=== PATIENT | male | born 1955 | race African-American/Black ===

== ENCOUNTER → 2016-10-20 | Outpatient (CLI) | payer MEDICAID | END | disposition home or self-care (01) | LOC: CFH 14:09 | PROVIDERS: ATTEND Internal Medicine Cardiovascular Disease | DX: I42.9 Cardiomyopathy, unspecified (principal); I08.3 Combined rheumatic disorders of mitral, aortic and tricuspid valves; I10 Essential (primary) hypertension; E78.5 Hyperlipidemia, unspecified; E11.8 Type 2 diabetes mellitus with unspecified complications; I25.2 Old myocardial infarction | CPT/HCPCS: 93306 ==

== ENCOUNTER → 2017-10-25 | Outpatient (CLI) | payer MEDICAID | END | disposition home or self-care (01) | LOC: CVU 12:55 | PROVIDERS: ATTEND Internal Medicine Cardiovascular Disease | DX: I42.9 Cardiomyopathy, unspecified (principal); I10 Essential (primary) hypertension; I25.2 Old myocardial infarction | CPT/HCPCS: 93306 ==

== ENCOUNTER → 2018-10-30 | Outpatient (CLI) | payer MEDICAID | END | disposition home or self-care (01) | LOC: CFH 06:45 | PROVIDERS: ATTEND Internal Medicine Cardiovascular Disease | DX: I35.8 Other nonrheumatic aortic valve disorders (principal); I11.9 Hypertensive heart disease without heart failure; I25.89 Other forms of chronic ischemic heart disease; I42.9 Cardiomyopathy, unspecified; E78.5 Hyperlipidemia, unspecified; I25.2 Old myocardial infarction | CPT/HCPCS: 78452; 93017; 93306; A9502 ==

== ENCOUNTER 2018-11-21 08:08 | Observation (INO) | payer MEDICAID ==
[~2018-11-21] VITALS: Ht 175.3 cm; Wt 98.6 kg
[2018-11-21] MEDS ORDERED: PRAV40TA2 PO (08:44)
[2018-11-21] MEDS ORDERED: PIOG30TA4 PO (08:44)
[2018-11-21] MEDS ORDERED: ASPI-496 PO (08:44)
[2018-11-21] MEDS ORDERED: CARV25TA12 PO (08:44)
[2018-11-21] MEDS ORDERED: GABA300C10 PO (08:44)
[2018-11-21] MEDS ORDERED: DULA0.75 SC (08:44)
[2018-11-21] MEDS ORDERED: GLIM4TAB2 PO (08:44)
[2018-11-21] MEDS ORDERED: LOSA25TA25 PO (08:44)
[2018-11-21] MEDS ORDERED: HYDROCHLOROTH12.5 MG PO (08:44)
[2018-11-21] MEDS ORDERED: ASPIRIN 325 MG TABLET EC PO ONE (09:00)
[2018-11-21] MEDS ORDERED: ASPIRIN 325 MG TABLET EC ONE ×2 (09:22→12:28)
[2018-11-21] MEDS ORDERED: MIDAZOLAM 1 MG/ML, 5ML ONE ×2 (09:22→11:28)
[2018-11-21] MEDS ORDERED: FENTANYL PF 100 MCG/2ML ONE ×2 (09:22→11:27)
[2018-11-21] MEDS ORDERED: LIDOCAINE 1%, 20ML ONE (09:22)
[2018-11-21] MEDS ORDERED: NITROGLYCERIN 5 MG/ML, 10ML ONE (09:23)
[2018-11-21 09:25] LABS: BASOPHILS # (AUTO) 0.05 x10^3/uL (0-0.1); BASOPHILS % (AUTO) 1 % (0-1); EOSINOPHILS % (AUTO) 3 % (1-7); LYMPHOCYTES # (AUTO) 1.12 x10^3/uL (1-3.4); LYMPHOCYTES % (AUTO) 32 % (22-44); MD NO; MEAN CORPUSCULAR HEMOGLOBIN 28.4 pg (27.5-34.5); MEAN CORPUSCULAR VOLUME 88.9 fL (81-97); MONOCYTES # (AUTO) 0.38 x10^3/uL (0.2-0.8); MONOCYTES % (AUTO) 11 % (2-9); NEUTROPHILS # (AUTO) 1.84 x10^3/uL (1.8-6.8); NEUTROPHILS % (AUTO) 53 % (42-75); PLATELET COUNT 161 x10^3/uL (130-400); RED BLOOD COUNT 4.76 x10^6/uL (4.38-5.82); RED CELL DISTRIBUTION WIDTH 15.1 % (9.4-14.8)
[2018-11-21 09:26] VITALS: BP 139/90
[2018-11-21] MEDS ORDERED: PLEASE ENTER HEIGHT AND WEIGHT MC SCH (09:30)
[2018-11-21 09:43] LABS: ANION GAP 6 mmol/L (5-15); CALCIUM 8.6 mg/dL (8.5-10.1); CHLORIDE 113 mmol/L (98-107); CREATININE 1.34 mg/dL (0.7-1.3)
[2018-11-21] MEDS ORDERED: BIVALIRUDIN 250 MG ONE ×2 (11:28→12:14)
[2018-11-21] MEDS ORDERED: TICAGRELOR 90 MG TABLET ONE (11:28)
[2018-11-21] MEDS ORDERED: LIDOCAINE-MPF 1%, 5ML ONE (11:28)
[2018-11-21] MEDS ORDERED: BIVALIRUDIN 250 MG in SODIUM CHLORIDE 0.9% 50 ML IV SCH (12:25)
[2018-11-21] MEDS ORDERED: SODIUM CHLORIDE 0.9% 1,000 ML IV SCH (12:25)
[2018-11-21 12:55] VITALS: BP 133/82
[2018-11-21] MEDS: SODIUM CHLORIDE 0.9% 1,000 ML IV SCH ×2 (13:13→13:14)
[2018-11-21] MEDS: ASPIRIN 81 MG TABLET EC PO SCH (13:13)
[2018-11-21 20:57] VITALS: BP 121/74
[2018-11-21] MEDS: CARVEDILOL 25 MG TABLET PO SCH (20:58)
[2018-11-21] MEDS ORDERED: PRAVASTATIN 40 MG TABLET PO SCH (21:00)
[2018-11-21] MEDS ORDERED: TICAGRELOR 90 MG TABLET PO SCH (21:00)
[2018-11-22 00:36] VITALS: BP 115/76
[2018-11-22 05:39] LABS: ANION GAP 6 mmol/L (5-15); CALCIUM 8.1 mg/dL (8.5-10.1); CHLORIDE 110 mmol/L (98-107)
[2018-11-22 05:40] LABS: CREATININE 1.53 mg/dL (0.7-1.3)
[2018-11-22] MEDS ORDERED: ONDANSETRON 2MG/ML, 2ML IVPush ONE (08:30)
[2018-11-22] MEDS ORDERED: GABAPENTIN 300 MG CAPSULE PO SCH (09:00)
[2018-11-22] MEDS ORDERED: LOSARTAN 50MG TABLET PO SCH (09:00)
[2018-11-22] MEDS ORDERED: HYDROCHLOROTHIAZIDE 12.5 MG CAPSULE PO SCH (09:00)
[2018-11-22] MEDS ORDERED: GLIMEPIRIDE 4 MG TABLET PO SCH (09:00)
[2018-11-22 09:03] VITALS: BP 133/81
[2018-11-22] MEDS ORDERED: PRASUGREL 10 MG TABLET PO ONE (09:30)
[2018-11-22] MEDS ORDERED: PRASUGREL 10 MG TABLET ONE (09:41)
[2018-11-22] MEDS: ASPIRIN 81 MG TABLET EC PO SCH (09:45)
[2018-11-22] MEDS: CARVEDILOL 25 MG TABLET PO SCH (09:46)
[2018-11-22] MEDS ORDERED: PRAS10TA4 PO (13:38)
[2018-11-23] MEDS ORDERED: PRASUGREL 10 MG TABLET PO SCH (09:00)
== END 2018-11-22 14:55 | disposition home or self-care (01) ==
LOC: CACL 08:08 → 5SO 12:25 → CACL 12:43 → 5SO 16:46 → DCLOUNGE 11-22 14:47
PROVIDERS: ADMIT Internal Medicine Cardiovascular Disease; ATTEND Internal Medicine Cardiovascular Disease
DX: I25.110 Atherosclerotic heart disease of native coronary artery with unstable angina pectoris (principal); I12.9 Hypertensive chronic kidney disease with stage 1 through stage 4 chronic kidney disease, or unspecified chronic kidney disease; E11.22 Type 2 diabetes mellitus with diabetic chronic kidney disease; N18.9 Chronic kidney disease, unspecified; E78.5 Hyperlipidemia, unspecified; I42.9 Cardiomyopathy, unspecified; E66.9 Obesity, unspecified; T78.3XXA Angioneurotic edema, initial encounter; Z88.8 Allergy status to other drugs, medicaments and biological substances
CPT/HCPCS: 36415; 80048; 85025; 93005; 93458; 96374; 99156; C1725; C1760; C1769; C1874; C1887; C1894; C9600; G0378; J0583; J2250; J2405; J3010; J3490; Q9967; 96372

== ENCOUNTER → 2019-10-25 | Outpatient (CLI) | payer MEDICAID ==
[~2019-10-25] MED LIST: ASPI-496 PO; CARV25TA12 PO; DULA0.75 SC; GABA300C10 PO; GLIM4TAB8 PO; HYDROCHLOROTH12.5 MG PO; LOSA25TA25 PO; PIOG30TA68 PO; PRAS10TA4 PO; PRAV40TA2 PO
== END | disposition home or self-care (01) ==
LOC: CFH 08:41
PROVIDERS: ATTEND Internal Medicine Cardiovascular Disease
DX: I35.0 Nonrheumatic aortic (valve) stenosis (principal); I42.9 Cardiomyopathy, unspecified
CPT/HCPCS: 93306; 93356

== ENCOUNTER 2020-08-21 17:12 | Inpatient (IN) | payer MEDICAID ==
[~2020-08-21] VITALS: Ht 167.6 cm; Wt 81.9 kg
[2020-08-21] MEDS ORDERED: chlorPROMAZINE 25 MG/ML, 1ML IM ONE (18:11)
--- NOTE | 2020-08-21 18:18 | NUR ---
PT STATES HE HAS BEEN FEBRILE WITH CHILLS AND NAUSEA AND BODYACHES. STATES HE HAS NOT EVER FELT THIS BAD IN HIS LIFE
[2020-08-21] MEDS ORDERED: ONDANSETRON 2MG/ML, 2ML IVPush ONE (18:30)
[2020-08-21] MEDS ORDERED: ACETAMINOPHEN 500 MG TABLET PO ONE (18:30)
[2020-08-21] MEDS ORDERED: HYDROmorphone 2 MG/ML, 1ML IVPush PRN (18:30)
[2020-08-21 18:59] LABS: BASOPHILS % (AUTO) 0 % (0-1); EOSINOPHILS % (AUTO) 0 % (1-7); LYMPHOCYTES % (AUTO) 14 % (22-44); MEAN CORPUSCULAR HEMOGLOBIN 28.9 pg (27.5-34.5); MEAN PLATELET VOLUME 8.1 fL (7.4-10.4); MONOCYTES % (AUTO) 11 % (2-9); NEUTROPHILS % (AUTO) 74 % (42-75); PLATELET COUNT 153 x10^3/uL (130-400); RED BLOOD COUNT 4.43 x10^6/uL (4.38-5.82); RED CELL DISTRIBUTION WIDTH 13.8 % (9.4-14.8)
[2020-08-21 19:00] LABS: MD NO
[2020-08-21 19:04] LABS: ALANINE AMINOTRANSFERASE 30 U/L (12-78); ALBUMIN 3.1 g/dL (3.4-5.0); ANION GAP 6 mmol/L (5-15); CALCIUM 8.2 mg/dL (8.5-10.1); CHLORIDE 101 mmol/L (98-107)
[2020-08-21 19:07] LABS: ALKALINE PHOSPHATASE 64 U/L (45-117); BILIRUBIN,TOTAL 0.8 mg/dL (0.2-1.0); TOTAL PROTEIN 7.2 g/dL (6.4-8.2)
[2020-08-21] MEDS ORDERED: BACLOFEN 10 MG TABLET PO ONE (19:08)
--- NOTE | 2020-08-21 19:11 | NUR ---
REPORT TO BERTRAM FERNÁNDEZ
[2020-08-21] MEDS ORDERED: ONDANSETRON 2MG/ML, 2ML ONE (19:15)
[2020-08-21] MEDS ORDERED: ACETAMINOPHEN 500 MG TABLET ONE (19:15)
[2020-08-21] MEDS ORDERED: HYDROmorphone 1 MG/ML, 1ML INJ ONE (19:15)
[2020-08-21] MEDS ORDERED: MAALOX/HYOSCYAMINE/LIDOCAINE 45 ML BTL ONE (19:15)
[2020-08-21] MEDS ORDERED: MAALOX/HYOSCYAMINE/LIDOCAINE 45 ML BTL PO ONE (19:30)
[2020-08-21] MEDS: CARVEDILOL 25 MG TABLET PO SCH (21:00)
[2020-08-21] MEDS: PRAVASTATIN 40 MG TABLET PO SCH (21:00)
[2020-08-21] MEDS: HEPARIN 5,000 UNITS/ML, 1ML SQ SCH (21:00)
[2020-08-21] MEDS ORDERED: SODIUM CHLORIDE 0.9% 1,000 ML IV SCH (21:00)
[2020-08-21] MEDS ORDERED: ACETAMINOPHEN 325 MG TABLET PO PRN (21:00)
[2020-08-21] MEDS ORDERED: DOCUSATE 100 MG CAPSULE PO PRN (21:00)
[2020-08-21] MEDS: INSULIN LISPRO 100 UNITS/ML, PEN SQ-INSULIN SCH (21:00)
--- NOTE | 2020-08-21 21:35 | NUR ---
LAB AT BEDSIDE
[2020-08-21] MEDS ORDERED: DULA0.75 IM (21:43)
[2020-08-21 21:50] LABS: RAPID INFLUENZA A Negative (Negative); RAPID INFLUENZA B Negative (Negative)
--- NOTE | 2020-08-21 21:53 | NUR ---
REPORT GVEN TO JOLENE WINKLER
[2020-08-21 22:15] LABS: ALANINE AMINOTRANSFERASE 30 U/L (12-78); ANION GAP 9 mmol/L (5-15); CHLORIDE 102 mmol/L (98-107); CREATININE 1.94 mg/dL (0.7-1.3)
[2020-08-21 22:17] LABS: D-DIMER (DIC) 1.54 ug/mlFEU (0.00-0.52)
[2020-08-21 22:21] LABS: ALKALINE PHOSPHATASE 63 U/L (45-117); BILIRUBIN,TOTAL 0.7 mg/dL (0.2-1.0); TOTAL PROTEIN 7.2 g/dL (6.4-8.2)
[2020-08-21 22:55] VITALS: BP 99/64
[2020-08-22 00:39] VITALS: BP 102/68
[2020-08-22] MEDS: HEPARIN 5,000 UNITS/ML, 1ML SQ SCH ×3 (05:21→21:39)
[2020-08-22 06:58] LABS: BASOPHILS % (AUTO) 0 % (0-1); EOSINOPHILS % (AUTO) 0 % (1-7); LYMPHOCYTES % (AUTO) 10 % (22-44); MEAN CORPUSCULAR HEMOGLOBIN 28.6 pg (27.5-34.5); MEAN CORPUSCULAR HGB CONC 32.7 g/dL (33.2-36.2); MEAN PLATELET VOLUME 8.9 fL (7.4-10.4); MONOCYTES % (AUTO) 7 % (2-9); NEUTROPHILS % (AUTO) 83 % (42-75); PLATELET COUNT 132 x10^3/uL (130-400); RED BLOOD COUNT 4.64 x10^6/uL (4.38-5.82); RED CELL DISTRIBUTION WIDTH 13.9 % (9.4-14.8)
[2020-08-22 07:00] VITALS: BP 131/80
[2020-08-22 07:00] LABS: MD NO
[2020-08-22] MEDS: INSULIN LISPRO 100 UNITS/ML, PEN SQ-INSULIN SCH ×4 (07:00→21:00)
[2020-08-22 07:06] LABS: ANION GAP 6 mmol/L (5-15); CALCIUM 8.4 mg/dL (8.5-10.1); CHLORIDE 104 mmol/L (98-107); CREATININE 1.79 mg/dL (0.7-1.3)
[2020-08-22] MEDS: PRASUGREL 10 MG TABLET PO SCH (08:08)
[2020-08-22] MEDS: HYDROCHLOROTHIAZIDE 12.5 MG CAPSULE PO SCH (08:09)
[2020-08-22] MEDS: ASPIRIN 81 MG TABLET EC PO SCH (08:09)
[2020-08-22] MEDS: LOSARTAN 100 MG TAB PO SCH (08:10)
[2020-08-22] MEDS: GABAPENTIN 300 MG CAPSULE PO SCH (08:11)
[2020-08-22] MEDS: CARVEDILOL 25 MG TABLET PO SCH (08:11)
[2020-08-22] MEDS ORDERED: GLIMEPIRIDE 4 MG TABLET PO SCH (09:00)
[2020-08-22] MEDS ORDERED: PIOGLITAZONE 15 MG TABLET PO SCH (09:00)
[2020-08-22] MEDS ORDERED: OMNIPAQUE 350 MG/ML, 100ML BOTTLE ONE (11:12)
[2020-08-22 13:11] VITALS: BP 100/64
[2020-08-22] MEDS ORDERED: DEXAMETHASONE 4 MG/ML, 1ML IVPush ONE (15:00)
[2020-08-22 20:11] VITALS: BP 115/67
[2020-08-22] MEDS: CARVEDILOL 6.25 MG TABLET PO SCH (21:38)
[2020-08-22] MEDS: PRAVASTATIN 40 MG TABLET PO SCH (21:38)
[2020-08-23 02:06] VITALS: BP 100/82
[2020-08-23 05:31] LABS: BASOPHILS % (AUTO) 1 % (0-1); EOSINOPHILS % (AUTO) 0 % (1-7); LYMPHOCYTES % (AUTO) 7 % (22-44); MEAN CORPUSCULAR HEMOGLOBIN 28.9 pg (27.5-34.5); MEAN CORPUSCULAR HGB CONC 33.5 g/dL (33.2-36.2); MEAN PLATELET VOLUME 8.3 fL (7.4-10.4); MONOCYTES % (AUTO) 7 % (2-9); NEUTROPHILS % (AUTO) 85 % (42-75); PLATELET COUNT 156 x10^3/uL (130-400); RED BLOOD COUNT 4.29 x10^6/uL (4.38-5.82)
[2020-08-23 05:34] LABS: ANION GAP 9 mmol/L (5-15); CHLORIDE 104 mmol/L (98-107); CREATININE 2.02 mg/dL (0.7-1.3)
[2020-08-23] MEDS: HEPARIN 5,000 UNITS/ML, 1ML SQ SCH ×3 (05:42→21:39)
[2020-08-23 05:45] LABS: MD NO
[2020-08-23 06:52] VITALS: BP 99/55
[2020-08-23] MEDS: INSULIN LISPRO 100 UNITS/ML, PEN SQ-INSULIN SCH ×4 (07:00→21:00)
[2020-08-23] MEDS: HYDROCHLOROTHIAZIDE 12.5 MG CAPSULE PO SCH (09:11)
[2020-08-23] MEDS: CHOLECALCIFEROL 5,000u TAB PO SCH (09:11)
[2020-08-23] MEDS: CARVEDILOL 6.25 MG TABLET PO SCH ×2 (09:11→21:44)
[2020-08-23] MEDS: THIAMINE 100MG TABLET PO SCH (09:11)
[2020-08-23] MEDS: LOSARTAN 100 MG TAB PO SCH (09:11)
[2020-08-23] MEDS: PRASUGREL 10 MG TABLET PO SCH (09:11)
[2020-08-23] MEDS: ZINC SULFATE 220 MG CAPSULE PO SCH (09:11)
[2020-08-23] MEDS: ASPIRIN 81 MG TABLET EC PO SCH (09:12)
[2020-08-23] MEDS: DEXAMETHASONE 4 MG/ML, 1ML IVPush SCH (09:12)
[2020-08-23] MEDS: AZITHROMYCIN 250 MG TABLET PO SCH (09:12)
[2020-08-23] MEDS: ASCORBIC ACID 500 MG TABLET PO SCH ×2 (09:12→17:00)
[2020-08-23] MEDS: GABAPENTIN 300 MG CAPSULE PO SCH (09:12)
[2020-08-23] MEDS: CEFTRIAXONE PMX 2GM/50ML 50 ML IVPB SCH (09:12)
[2020-08-23 12:05] VITALS: BP 104/62
[2020-08-23 20:08] VITALS: BP 99/68
[2020-08-23] MEDS: PRAVASTATIN 40 MG TABLET PO SCH (21:38)
[2020-08-23 21:44] VITALS: BP 109/67
[2020-08-24 01:24] VITALS: BP 104/57
[2020-08-24] MEDS ORDERED: LORazepam 2 MG/ML, 1ML IVPush ONE (05:00)
[2020-08-24] MEDS: HEPARIN 5,000 UNITS/ML, 1ML SQ SCH ×2 (05:04→16:11)
[2020-08-24 05:47] LABS: BASOPHILS % (AUTO) 0 % (0-1); EOSINOPHILS % (AUTO) 0 % (1-7); LYMPHOCYTES % (AUTO) 4 % (22-44); MEAN CORPUSCULAR HEMOGLOBIN 28.8 pg (27.5-34.5); MEAN CORPUSCULAR HGB CONC 33.5 g/dL (33.2-36.2); MONOCYTES % (AUTO) 8 % (2-9); NEUTROPHILS % (AUTO) 87 % (42-75); PLATELET COUNT 212 x10^3/uL (130-400); RED BLOOD COUNT 4.54 x10^6/uL (4.38-5.82); RED CELL DISTRIBUTION WIDTH 14.1 % (9.4-14.8)
[2020-08-24 05:59] LABS: CHLORIDE 104 mmol/L (98-107)
[2020-08-24 06:04] LABS: ANION GAP 7 mmol/L (5-15); CALCIUM 8.4 mg/dL (8.5-10.1); CREATININE 1.66 mg/dL (0.7-1.3)
[2020-08-24 07:16] VITALS: BP 110/67
[2020-08-24 07:19] LABS: MD SCAN
[2020-08-24] MEDS: ASPIRIN 81 MG TABLET EC PO SCH (09:03)
[2020-08-24] MEDS: PRASUGREL 10 MG TABLET PO SCH (09:03)
[2020-08-24] MEDS: INSULIN LISPRO 100 UNITS/ML, PEN SQ-INSULIN SCH ×4 (09:03→22:13)
[2020-08-24] MEDS: ASCORBIC ACID 500 MG TABLET PO SCH ×2 (09:03→16:11)
[2020-08-24] MEDS: THIAMINE 100MG TABLET PO SCH (09:04)
[2020-08-24] MEDS: GABAPENTIN 300 MG CAPSULE PO SCH (09:04)
[2020-08-24] MEDS: CHOLECALCIFEROL 5,000u TAB PO SCH (09:04)
[2020-08-24] MEDS: CARVEDILOL 6.25 MG TABLET PO SCH ×2 (09:04→22:12)
[2020-08-24] MEDS: ZINC SULFATE 220 MG CAPSULE PO SCH (09:04)
[2020-08-24] MEDS: AZITHROMYCIN 250 MG TABLET PO SCH (09:04)
[2020-08-24] MEDS: CEFTRIAXONE PMX 2GM/50ML 50 ML IVPB SCH (09:05)
[2020-08-24] MEDS: DEXAMETHASONE 4 MG/ML, 1ML IVPush SCH (09:05)
[2020-08-24] MEDS ORDERED: REMDESIVIR 200 MG in SODIUM CHLORIDE 0.9% 250 ML IVPB ONE (10:00)
[2020-08-24 11:24] LABS: ALANINE AMINOTRANSFERASE 45 U/L (12-78); ALBUMIN 2.9 g/dL (3.4-5.0); ANION GAP 8 mmol/L (5-15); CALCIUM 8.4 mg/dL (8.5-10.1); CHLORIDE 104 mmol/L (98-107); CREATININE 1.61 mg/dL (0.7-1.3)
[2020-08-24 11:26] LABS: ALKALINE PHOSPHATASE 64 U/L (45-117); BILIRUBIN,TOTAL 0.4 mg/dL (0.2-1.0); TOTAL PROTEIN 7.2 g/dL (6.4-8.2)
[2020-08-24 12:05] VITALS: BP 110/65
[2020-08-24] MEDS ORDERED: FAMOTIDINE 20 MG/2 ML IVPush SCH (21:00)
[2020-08-24 21:11] VITALS: BP 118/77
[2020-08-24] MEDS: PRAVASTATIN 40 MG TABLET PO SCH (22:12)
[2020-08-24] MEDS: FAMOTIDINE 20 MG TABLET PO SCH (22:12)
[2020-08-24] MEDS: GUAIFENESIN/DM 200-20MG, 10ML UDC PO PRN (22:27)
[2020-08-25 00:09] VITALS: BP 100/62
[2020-08-25] MEDS: HEPARIN 5,000 UNITS/ML, 1ML SQ SCH ×3 (00:09→15:58)
[2020-08-25 06:16] LABS: BASOPHILS % (AUTO) 0 % (0-1); EOSINOPHILS % (AUTO) 0 % (1-7); LYMPHOCYTES % (AUTO) 7 % (22-44); MEAN CORPUSCULAR HEMOGLOBIN 28.6 pg (27.5-34.5); MEAN CORPUSCULAR HGB CONC 32.9 g/dL (33.2-36.2); MEAN PLATELET VOLUME 8.4 fL (7.4-10.4); MONOCYTES % (AUTO) 11 % (2-9); NEUTROPHILS % (AUTO) 82 % (42-75); PLATELET COUNT 243 x10^3/uL (130-400); RED BLOOD COUNT 4.62 x10^6/uL (4.38-5.82); RED CELL DISTRIBUTION WIDTH 13.5 % (9.4-14.8)
[2020-08-25 06:18] LABS: MD NO
[2020-08-25 06:29] LABS: ALBUMIN 2.9 g/dL (3.4-5.0); CHLORIDE 107 mmol/L (98-107)
[2020-08-25 06:34] LABS: ALANINE AMINOTRANSFERASE 57 U/L (12-78); ALKALINE PHOSPHATASE 65 U/L (45-117); ANION GAP 6 mmol/L (5-15); BILIRUBIN,TOTAL 0.5 mg/dL (0.2-1.0); CALCIUM 8.6 mg/dL (8.5-10.1); CREATININE 1.41 mg/dL (0.7-1.3)
[2020-08-25 06:47] VITALS: BP 113/69
[2020-08-25] MEDS: ASCORBIC ACID 500 MG TABLET PO SCH ×2 (08:58→15:58)
[2020-08-25] MEDS: ASPIRIN 81 MG TABLET EC PO SCH (08:58)
[2020-08-25] MEDS: FAMOTIDINE 20 MG TABLET PO SCH (08:58)
[2020-08-25] MEDS: PRASUGREL 10 MG TABLET PO SCH (08:58)
[2020-08-25] MEDS: THIAMINE 100MG TABLET PO SCH (08:59)
[2020-08-25] MEDS: CHOLECALCIFEROL 5,000u TAB PO SCH (08:59)
[2020-08-25] MEDS: CARVEDILOL 6.25 MG TABLET PO SCH ×2 (08:59→22:11)
[2020-08-25] MEDS: GABAPENTIN 300 MG CAPSULE PO SCH (08:59)
[2020-08-25] MEDS: ZINC SULFATE 220 MG CAPSULE PO SCH (08:59)
[2020-08-25] MEDS: AZITHROMYCIN 250 MG TABLET PO SCH (08:59)
[2020-08-25] MEDS: DEXAMETHASONE 4 MG/ML, 1ML IVPush SCH (08:59)
[2020-08-25] MEDS: INSULIN LISPRO 100 UNITS/ML, PEN SQ-INSULIN SCH ×4 (09:05→22:14)
[2020-08-25] MEDS: CEFTRIAXONE PMX 2GM/50ML 50 ML IVPB SCH (09:13)
[2020-08-25] MEDS: GUAIFENESIN/DM 200-20MG, 10ML UDC PO PRN (11:36)
[2020-08-25] MEDS: REMDESIVIR 100 MG in SODIUM CHLORIDE 0.9% 250 ML IVPB SCH (12:40)
[2020-08-25 12:57] VITALS: BP 113/73
[2020-08-25] MEDS: LORazepam 0.5MG TABLET PO PRN (17:25)
[2020-08-25 19:01] VITALS: BP 100/64
[2020-08-25 22:09] VITALS: BP 108/71
[2020-08-25] MEDS: PRAVASTATIN 40 MG TABLET PO SCH (22:11)
[2020-08-26 00:22] VITALS: BP 112/72
[2020-08-26] MEDS: HEPARIN 5,000 UNITS/ML, 1ML SQ SCH (00:29)
[2020-08-26] MEDS: LORazepam 0.5MG TABLET PO PRN (05:14)
[2020-08-26 06:00] LABS: BASOPHILS % (AUTO) 0 % (0-1); EOSINOPHILS % (AUTO) 0 % (1-7); LYMPHOCYTES % (AUTO) 8 % (22-44); MEAN CORPUSCULAR HEMOGLOBIN 28.9 pg (27.5-34.5); MEAN CORPUSCULAR HGB CONC 33.4 g/dL (33.2-36.2); MEAN PLATELET VOLUME 8.7 fL (7.4-10.4); MONOCYTES % (AUTO) 13 % (2-9); NEUTROPHILS % (AUTO) 78 % (42-75); PLATELET COUNT 266 x10^3/uL (130-400); RED BLOOD COUNT 4.67 x10^6/uL (4.38-5.82); RED CELL DISTRIBUTION WIDTH 13.8 % (9.4-14.8)
[2020-08-26 06:01] LABS: MD NO
[2020-08-26 06:09] LABS: CALCIUM 8.7 mg/dL (8.5-10.1); CHLORIDE 105 mmol/L (98-107)
[2020-08-26 06:14] LABS: ALANINE AMINOTRANSFERASE 49 U/L (12-78); ALBUMIN 2.8 g/dL (3.4-5.0); ALKALINE PHOSPHATASE 66 U/L (45-117); ANION GAP 12 mmol/L (5-15); BILIRUBIN,TOTAL 0.6 mg/dL (0.2-1.0); TOTAL PROTEIN 7.1 g/dL (6.4-8.2)
[2020-08-26 06:41] VITALS: BP_SYST 130; BP_SYST 30; BP_DIAS 75
[2020-08-26] MEDS ORDERED: DEXTROSE 4 GM TAB.CHEW PO PRN (08:00)
[2020-08-26] MEDS ORDERED: CALCIUM CARBONATE 500 MG TAB.CHEW PO PRN (08:00)
[2020-08-26] MEDS ORDERED: DEXTROSE 50%, 50ML SYRINGE IVPush PRN (08:00)
[2020-08-26] MEDS ORDERED: GLUCAGON 1 MG IM PRN (08:00)
[2020-08-26] MEDS ORDERED: AZITHROMYCIN 250 MG TABLET ONE (08:20)
[2020-08-26] MEDS ORDERED: CALCIUM CARBONATE 500 MG TAB.CHEW ONE (08:22)
[2020-08-26] MEDS: ENOXAPARIN 40 MG/0.4 ML SQ SCH (08:32)
[2020-08-26] MEDS: ASCORBIC ACID 500 MG TABLET PO SCH ×2 (08:33→15:59)
[2020-08-26] MEDS: CARVEDILOL 6.25 MG TABLET PO SCH ×2 (08:33→20:55)
[2020-08-26] MEDS: FAMOTIDINE 20 MG TABLET PO SCH (08:33)
[2020-08-26] MEDS: DEXAMETHASONE 4 MG/ML, 1ML IVPush SCH (08:33)
[2020-08-26] MEDS: ASPIRIN 81 MG TABLET EC PO SCH (08:33)
[2020-08-26] MEDS: PRASUGREL 10 MG TABLET PO SCH (08:33)
[2020-08-26] MEDS: ZINC SULFATE 220 MG CAPSULE PO SCH (08:33)
[2020-08-26] MEDS: GABAPENTIN 300 MG CAPSULE PO SCH (08:34)
[2020-08-26] MEDS: CHOLECALCIFEROL 5,000u TAB PO SCH (08:34)
[2020-08-26] MEDS: AZITHROMYCIN 500 MG TABLET PO SCH (08:34)
[2020-08-26] MEDS: THIAMINE 100MG TABLET PO SCH (08:34)
[2020-08-26] MEDS: SODIUM CHLORIDE FLUSH 10ML SYR IVF SCH ×2 (08:35→20:56)
[2020-08-26] MEDS: INSULIN LISPRO 100 UNITS/ML, PEN SQ-INSULIN SCH ×4 (08:36→20:53)
[2020-08-26] MEDS: INSULIN GLARGINE 100 UNITS/ML, PEN SQ-INSULIN SCH ×3 (09:00→20:53)
[2020-08-26] MEDS: CEFTRIAXONE PMX 2GM/50ML 50 ML IVPB SCH (09:02)
[2020-08-26] MEDS: ONDANSETRON 2MG/ML, 2ML IVPush PRN (09:02)
[2020-08-26 12:18] VITALS: BP 101/69
[2020-08-26] MEDS: REMDESIVIR 100 MG in SODIUM CHLORIDE 0.9% 250 ML IVPB SCH (12:23)
[2020-08-26 20:48] VITALS: BP 106/69
[2020-08-26] MEDS: PRAVASTATIN 40 MG TABLET PO SCH (20:55)
[2020-08-27 00:35] VITALS: BP 101/62
[2020-08-27 05:49] LABS: BASOPHILS % (AUTO) 0 % (0-1); EOSINOPHILS % (AUTO) 0 % (1-7); LYMPHOCYTES % (AUTO) 9 % (22-44); MEAN CORPUSCULAR HEMOGLOBIN 28.9 pg (27.5-34.5); MEAN PLATELET VOLUME 8.6 fL (7.4-10.4); MONOCYTES % (AUTO) 12 % (2-9); NEUTROPHILS % (AUTO) 79 % (42-75); PLATELET COUNT 285 x10^3/uL (130-400); RED BLOOD COUNT 4.68 x10^6/uL (4.38-5.82); RED CELL DISTRIBUTION WIDTH 14.1 % (9.4-14.8)
[2020-08-27 05:52] LABS: D-DIMER 0.71 ug/mlFEU (0.00-0.52)
[2020-08-27 05:56] LABS: CHLORIDE 106 mmol/L (98-107)
[2020-08-27 05:59] LABS: MD NO
[2020-08-27 06:05] LABS: ALANINE AMINOTRANSFERASE 61 U/L (12-78); ALBUMIN 2.8 g/dL (3.4-5.0); ALKALINE PHOSPHATASE 69 U/L (45-117); ANION GAP 8 mmol/L (5-15); BILIRUBIN,TOTAL 0.7 mg/dL (0.2-1.0); CALCIUM 8.9 mg/dL (8.5-10.1); CREATININE 1.39 mg/dL (0.7-1.3)
[2020-08-27] MEDS: ENOXAPARIN 40 MG/0.4 ML SQ SCH (06:31)
[2020-08-27 07:16] VITALS: BP 112/75
[2020-08-27] MEDS: INSULIN LISPRO 100 UNITS/ML, PEN SQ-INSULIN SCH ×4 (08:33→21:11)
[2020-08-27] MEDS: INSULIN GLARGINE 100 UNITS/ML, PEN SQ-INSULIN SCH ×2 (08:36→21:11)
[2020-08-27] MEDS: CEFTRIAXONE PMX 2GM/50ML 50 ML IVPB SCH (08:39)
[2020-08-27] MEDS: ZINC SULFATE 220 MG CAPSULE PO SCH (08:40)
[2020-08-27] MEDS: GABAPENTIN 300 MG CAPSULE PO SCH (08:40)
[2020-08-27] MEDS: DEXAMETHASONE 4 MG/ML, 1ML IVPush SCH (08:40)
[2020-08-27] MEDS: SODIUM CHLORIDE FLUSH 10ML SYR IVF SCH ×2 (08:40→21:10)
[2020-08-27] MEDS: AZITHROMYCIN 500 MG TABLET PO SCH (08:41)
[2020-08-27] MEDS: CHOLECALCIFEROL 5,000u TAB PO SCH (08:41)
[2020-08-27] MEDS: THIAMINE 100MG TABLET PO SCH (08:41)
[2020-08-27] MEDS: ASCORBIC ACID 500 MG TABLET PO SCH ×2 (08:41→16:28)
[2020-08-27] MEDS: CARVEDILOL 6.25 MG TABLET PO SCH ×2 (08:41→21:09)
[2020-08-27] MEDS: FAMOTIDINE 20 MG TABLET PO SCH (08:41)
[2020-08-27] MEDS: PRASUGREL 10 MG TABLET PO SCH (08:41)
[2020-08-27] MEDS: ASPIRIN 81 MG TABLET EC PO SCH (08:41)
[2020-08-27 10:56] LABS: TROPONIN I < 0.015 ng/mL (0.000-0.045)
[2020-08-27] MEDS: REMDESIVIR 100 MG in SODIUM CHLORIDE 0.9% 250 ML IVPB SCH (11:04)
[2020-08-27 13:49] VITALS: BP 103/67
[2020-08-27 16:16] LABS: TROPONIN I < 0.015 ng/mL (0.000-0.045)
[2020-08-27 20:26] VITALS: BP 104/69
[2020-08-27] MEDS: PRAVASTATIN 40 MG TABLET PO SCH (21:09)
[2020-08-27 23:27] LABS: TROPONIN I < 0.015 ng/mL (0.000-0.045)
[2020-08-28 01:22] VITALS: BP 113/73
[2020-08-28] MEDS: ENOXAPARIN 40 MG/0.4 ML SQ SCH (06:25)
[2020-08-28 07:47] VITALS: BP 106/65
[2020-08-28] MEDS: CEFTRIAXONE PMX 2GM/50ML 50 ML IVPB SCH (09:43)
[2020-08-28] MEDS: INSULIN LISPRO 100 UNITS/ML, PEN SQ-INSULIN SCH ×4 (09:43→21:08)
[2020-08-28 09:45] VITALS: BP 116/77
[2020-08-28] MEDS: ASCORBIC ACID 500 MG TABLET PO SCH ×2 (09:47→17:10)
[2020-08-28] MEDS: ASPIRIN 81 MG TABLET EC PO SCH (09:47)
[2020-08-28] MEDS: INSULIN GLARGINE 100 UNITS/ML, PEN SQ-INSULIN SCH ×2 (09:47→21:08)
[2020-08-28] MEDS: AZITHROMYCIN 500 MG TABLET PO SCH (09:47)
[2020-08-28] MEDS: FAMOTIDINE 20 MG TABLET PO SCH (09:47)
[2020-08-28] MEDS: ZINC SULFATE 220 MG CAPSULE PO SCH (09:47)
[2020-08-28] MEDS: PRASUGREL 10 MG TABLET PO SCH (09:47)
[2020-08-28] MEDS: CARVEDILOL 6.25 MG TABLET PO SCH ×2 (09:47→21:07)
[2020-08-28] MEDS: GABAPENTIN 300 MG CAPSULE PO SCH (09:47)
[2020-08-28] MEDS: THIAMINE 100MG TABLET PO SCH (09:47)
[2020-08-28] MEDS: DEXAMETHASONE 4 MG/ML, 1ML IVPush SCH (09:48)
[2020-08-28] MEDS: CHOLECALCIFEROL 5,000u TAB PO SCH (09:48)
[2020-08-28] MEDS: SODIUM CHLORIDE FLUSH 10ML SYR IVF SCH ×2 (09:48→21:00)
[2020-08-28 11:12] LABS: ANION GAP 8 mmol/L (5-15); CHLORIDE 107 mmol/L (98-107)
[2020-08-28 11:15] LABS: ALANINE AMINOTRANSFERASE 76 U/L (12-78); ALKALINE PHOSPHATASE 64 U/L (45-117); BILIRUBIN,TOTAL 0.6 mg/dL (0.2-1.0); CREATININE 1.43 mg/dL (0.7-1.3); TOTAL PROTEIN 7.2 g/dL (6.4-8.2)
[2020-08-28] MEDS: REMDESIVIR 100 MG in SODIUM CHLORIDE 0.9% 250 ML IVPB SCH (12:24)
[2020-08-28 13:24] VITALS: BP 119/76
[2020-08-28 20:14] VITALS: BP 116/74
[2020-08-28] MEDS: PRAVASTATIN 40 MG TABLET PO SCH (21:07)
[2020-08-29 02:06] VITALS: BP 119/70
[2020-08-29] MEDS: LORazepam 0.5MG TABLET PO PRN (06:09)
[2020-08-29] MEDS: ENOXAPARIN 40 MG/0.4 ML SQ SCH (06:10)
[2020-08-29 06:35] LABS: ALANINE AMINOTRANSFERASE 80 U/L (12-78); ANION GAP 8 mmol/L (5-15); CALCIUM 8.9 mg/dL (8.5-10.1); CHLORIDE 107 mmol/L (98-107); CREATININE 1.34 mg/dL (0.7-1.3)
[2020-08-29 06:37] LABS: ALKALINE PHOSPHATASE 69 U/L (45-117); BILIRUBIN,TOTAL 0.5 mg/dL (0.2-1.0)
[2020-08-29 07:25] LABS: BASOPHILS % (AUTO) 0 % (0-1); EOSINOPHILS % (AUTO) 0 % (1-7); LYMPHOCYTES % (AUTO) 12 % (22-44); MD NO; MEAN CORPUSCULAR HEMOGLOBIN 28.9 pg (27.5-34.5); MEAN CORPUSCULAR HGB CONC 33.3 g/dL (33.2-36.2); MEAN PLATELET VOLUME 8.6 fL (7.4-10.4); MONOCYTES % (AUTO) 13 % (2-9); NEUTROPHILS % (AUTO) 76 % (42-75); PLATELET COUNT 350 x10^3/uL (130-400); RED CELL DISTRIBUTION WIDTH 14.1 % (9.4-14.8)
[2020-08-29 08:03] VITALS: BP 107/69
[2020-08-29] MEDS: ASPIRIN 81 MG TABLET EC PO SCH (09:07)
[2020-08-29] MEDS: THIAMINE 100MG TABLET PO SCH (09:07)
[2020-08-29] MEDS: FAMOTIDINE 20 MG TABLET PO SCH (09:07)
[2020-08-29] MEDS: ZINC SULFATE 220 MG CAPSULE PO SCH (09:07)
[2020-08-29] MEDS: CARVEDILOL 6.25 MG TABLET PO SCH ×2 (09:08→20:28)
[2020-08-29] MEDS: GABAPENTIN 300 MG CAPSULE PO SCH (09:09)
[2020-08-29] MEDS: ASCORBIC ACID 500 MG TABLET PO SCH ×2 (09:09→17:02)
[2020-08-29] MEDS: AZITHROMYCIN 500 MG TABLET PO SCH (09:09)
[2020-08-29] MEDS: PRASUGREL 10 MG TABLET PO SCH (09:09)
[2020-08-29] MEDS: CHOLECALCIFEROL 5,000u TAB PO SCH (09:09)
[2020-08-29] MEDS: INSULIN GLARGINE 100 UNITS/ML, PEN SQ-INSULIN SCH ×2 (09:12→20:29)
[2020-08-29] MEDS: INSULIN LISPRO 100 UNITS/ML, PEN SQ-INSULIN SCH ×4 (09:12→20:29)
[2020-08-29] MEDS ORDERED: CEFTRIAXONE PMX 1GM/50ML 50 ML IV SCH (11:00)
[2020-08-29] MEDS: SODIUM CHLORIDE FLUSH 10ML SYR IVF SCH ×2 (11:35→20:28)
[2020-08-29] MEDS: ONDANSETRON 2MG/ML, 2ML IVPush PRN (12:36)
[2020-08-29 12:52] VITALS: BP 118/74
[2020-08-29 20:01] VITALS: BP 118/71
[2020-08-29] MEDS: PRAVASTATIN 40 MG TABLET PO SCH (20:28)
[2020-08-30 01:25] VITALS: BP 102/68
[2020-08-30 05:45] LABS: BASOPHILS % (AUTO) 0 % (0-1); EOSINOPHILS % (AUTO) 0 % (1-7); LYMPHOCYTES % (AUTO) 9 % (22-44); MEAN CORPUSCULAR HEMOGLOBIN 29.1 pg (27.5-34.5); MEAN CORPUSCULAR HGB CONC 33.7 g/dL (33.2-36.2); MEAN PLATELET VOLUME 8.7 fL (7.4-10.4); MONOCYTES % (AUTO) 11 % (2-9); NEUTROPHILS % (AUTO) 80 % (42-75); PLATELET COUNT 334 x10^3/uL (130-400); RED BLOOD COUNT 4.54 x10^6/uL (4.38-5.82); RED CELL DISTRIBUTION WIDTH 13.9 % (9.4-14.8)
[2020-08-30 05:54] LABS: ALANINE AMINOTRANSFERASE 71 U/L (12-78); ALBUMIN 2.9 g/dL (3.4-5.0); ANION GAP 5 mmol/L (5-15); CALCIUM 8.8 mg/dL (8.5-10.1); CHLORIDE 106 mmol/L (98-107); CREATININE 1.38 mg/dL (0.7-1.3)
[2020-08-30 05:56] LABS: ALKALINE PHOSPHATASE 63 U/L (45-117); BILIRUBIN,TOTAL 0.5 mg/dL (0.2-1.0); TOTAL PROTEIN 6.6 g/dL (6.4-8.2)
[2020-08-30 06:09] LABS: MD NO
[2020-08-30] MEDS: ENOXAPARIN 40 MG/0.4 ML SQ SCH (08:00)
[2020-08-30] MEDS: INSULIN LISPRO 100 UNITS/ML, PEN SQ-INSULIN SCH ×2 (08:12→12:30)
[2020-08-30] MEDS: ASCORBIC ACID 500 MG TABLET PO SCH (08:13)
[2020-08-30] MEDS: THIAMINE 100MG TABLET PO SCH (08:13)
[2020-08-30] MEDS: PRASUGREL 10 MG TABLET PO SCH (08:13)
[2020-08-30] MEDS: ASPIRIN 81 MG TABLET EC PO SCH (08:13)
[2020-08-30] MEDS: CARVEDILOL 6.25 MG TABLET PO SCH (08:13)
[2020-08-30] MEDS: CHOLECALCIFEROL 5,000u TAB PO SCH (08:14)
[2020-08-30] MEDS: FAMOTIDINE 20 MG TABLET PO SCH (08:14)
[2020-08-30] MEDS: GABAPENTIN 300 MG CAPSULE PO SCH (08:14)
[2020-08-30] MEDS: ZINC SULFATE 220 MG CAPSULE PO SCH (08:14)
[2020-08-30 08:15] VITALS: BP 120/82
[2020-08-30] MEDS: INSULIN GLARGINE 100 UNITS/ML, PEN SQ-INSULIN SCH (08:15)
[2020-08-30] MEDS: SODIUM CHLORIDE FLUSH 10ML SYR IVF SCH (08:17)
[2020-08-30] MEDS ORDERED: ASCO500T9 PO (11:49)
[2020-08-30] MEDS ORDERED: THIA100T67 PO (11:49)
[2020-08-30] MEDS ORDERED: ZINC220C7 PO (11:49)
[2020-08-30] MEDS ORDERED: CHOL500045 PO (11:49)
[2020-08-30] MEDS ORDERED: CARV6.2512 PO (11:49)
[2020-08-30] MEDS ORDERED: PRED10TA PO (11:49)
[2020-08-30 13:23] VITALS: BP 101/68
== END 2020-08-30 15:16 | disposition home or self-care (01) | DRG 177 ==
LOC: ED 19:22 → EDIP 21:11 → 4EST 22:34
PROVIDERS: ADMIT Family Medicine; ATTEND Internal Medicine
PROC: XW033E5 Introduction of Remdesivir Anti-infective into Peripheral Vein, Percutaneous Approach, New Technology Group 5 (ICD-10-PCS; principal; 2020-08-24)
DX: U07.1 COVID-19 (principal); J12.82 Pneumonia due to coronavirus disease 2019; J96.01 Acute respiratory failure with hypoxia; N17.0 Acute kidney failure with tubular necrosis; I50.22 Chronic systolic (congestive) heart failure; I13.0 Hypertensive heart and chronic kidney disease with heart failure and stage 1 through stage 4 chronic kidney disease, or unspecified chronic kidney disease; I42.8 Other cardiomyopathies; I47.2 Ventricular tachycardia; E11.22 Type 2 diabetes mellitus with diabetic chronic kidney disease; E11.65 Type 2 diabetes mellitus with hyperglycemia; E88.09 Other disorders of plasma-protein metabolism, not elsewhere classified; I25.10 Atherosclerotic heart disease of native coronary artery without angina pectoris; N18.30 Chronic kidney disease, stage 3 unspecified; I25.5 Ischemic cardiomyopathy; I49.3 Ventricular premature depolarization; Z79.4 Long term (current) use of insulin
CPT/HCPCS: 36415; 71045; 71275; 80048; 80053; 82728; 82962; 83605; 83615; 83735; 84100; 84132; 84145; 84484; 85025; 85049; 85379; 85384; 85610; 85651; 85730; 86140; 87040; 87400; 87635; 93005; 93306; 96374; 96375; 99285; G0378; J0696; J1100; J1170; J1644; J1650; J2405; Q9967; J1815; J2060; J7030; J7050; J7512